=== PATIENT | male | born 1955 | race Caucasian/White ===

== ENCOUNTER 2017-04-02 16:36 | Emergency (ER) | payer BC ==
[2017-04-02 16:45] VITALS: BP 134/85
[2017-04-02] MEDS ORDERED: Lidocaine 1% MPF* 2 ML VIAL INJ ONE (17:33)
--- NOTE | 2017-04-02 18:22 | UC ---
Skin Complaint HPI - HPI Summary HPI Summary: Patient presents to with CC of left sided upper back tick bite. Tick was dislodged this afternoon, but patient feels the head may be stuck into the skin. 2 attempts by 2 different people to dislodge the tick failed. He comes in today to have the tick head removed. On exam there is a small black dot in the center of a raised erythematous area with swelling. No EM rash. Patient has had several ticks in the past, but denies Lyme disease. He has taken doxycycline in the past. Denies muscle aches, joint pains or FERRARI. - History of Current Complaint Chief Complaint: UCBiteInjury Time Seen by Provider: 04/02/17 17:25 Stated Complaint: TICK Hx Obtained From: Patient Onset/Duration: Sudden Onset Skin Exposure Onset/Duration: Hours Ago Timing: Constant Onset Severity: Mild Current Severity: Mild Pain Intensity: 0 Pain Scale Used: 0-10 Numeric Location: Discrete - left upper back Character: Swelling, Redness, Raised, Painful Aggravating: Nothing Alleviating: Nothing Related History: Insect Bite/Sting, Possible Reaction to: Insect - Allergy/Home Medications Allergies/Adverse Reactions: Allergies Allergy/AdvReac Type Severity Reaction Status Date / Time No Known Allergies Allergy Verified 04/02/17 16:45 Home Medications: Home Medications NK [No Home Medications Reported] 04/02/17 [History Confirmed 04/02/17] Review of Systems Constitutional: Negative Skin: Other - tick bite Respiratory: Negative Cardiovascular: Negative Motor: Negative Neurovascular: Negative Neurological: Negative Psychological: Negative All Other Systems Reviewed And Are Negative: Yes PMH/Surg Hx/FS Hx/Imm Hx Previously Healthy: Yes - Surgical History Surgical History: None - Family History Known Family History: Positive: Unknown - Social History Occupation: Employed Full-time Lives: With Family Alcohol Use: Weekly Substance Use Type: None Smoking Status (MU): Never Smoked Tobacco Have You Smoked in the Last Year: No Physical Exam Triage Information Reviewed: Yes Appearance: Well-Appearing, No Pain Distress, Well-Nourished Vital Signs: Initial Vital Signs Temp 99.1 F 04/02/17 16:40 Pulse 71 04/02/17 16:40 Resp 14 04/02/17 16:40 BP 134/85 04/02/17 16:40 Pulse Ox 99 04/02/17 16:40 Vital Signs Reviewed: Yes Eye Exam: Normal Eyes: Positive: Conjunctiva Clear Neck exam: Normal Neck: Positive: Supple, Nontender, No Lymphadenopathy Respiratory Exam: Normal Respiratory: Positive: Chest non-tender, Lungs clear Cardiovascular Exam: Normal Cardiovascular: Positive: RRR Musculoskeletal Exam: Normal Musculoskeletal: Positive: Strength Intact Psychological Exam: Normal Psychological: Positive: Normal Response To Family Skin: Positive: Other - raised 1cm diameter erythematous lesion over left upper back without pruritis Course/Dx - Course Course Of Treatment: Patient presents with tick bite to the upper right side of back with small black FB in center. He notes that the head was left in upon trying to dislodge the tick. Tick was slightly engorged per patient. He states tick was attched for likely less than 24 hours. .5ml Lidocaine 1% used as anesthetic. Time out was obtained. 18 gauge needle used to dislodge small black piece in center. He denies wanting doxycycline prophylaxis. patient OK with discharge. - Differential Diagnoses - Skin Complaint Differential Diagnoses: Tick Born Illness, Other - lyme, insect, FB - Diagnoses Provider Diagnoses: Tick bite Discharge - Discharge Plan Condition: Stable Disposition: HOME Patient Education Materials: Tick Bite (ED) Referrals: Non Staff,Doctor [Primary Care Provider] - Additional Instructions: Approach to prophylaxis : According to the Infectious Diseases Society of [place] (IDSA) guidelines that recommend antibiotic prophylaxis only in patients who meet all of the following criteria: 1. Attached tick identified as an adult or nymphal I. scapularis tick (deer tick). 2. Tick is estimated to have been attached for 36 hours (by degree of engorgement or time of exposure). 3. Prophylaxis is begun within 72 hours of tick removal. Local rate of infection of ticks with B. burgdorferi is 20 percent if attached for over 48 hours (these rates of infection have been shown to occur in parts of [place], parts of the [facility], and parts of [place] and [place]). If you experience a tick and time of attachment is believed to be less than 36 hours, you may remove the tick with head intact and no need for prophylaxis. If over 36 hours, please come into UC. Prophylactic doxycycline is not recommended for ticks attached less than 36 hours.
== END 2017-04-02 17:55 | disposition home or self-care (01) ==
LOC: UCCORT 16:36
DX: S20.462A Insect bite (nonvenomous) of left back wall of thorax, initial encounter (principal); W57.XXXA Bitten or stung by nonvenomous insect and other nonvenomous arthropods, initial encounter; Y93.9 Activity, unspecified; Y92.9 Unspecified place or not applicable
CPT/HCPCS: 10120; 99211; G0463

== ENCOUNTER 2024-06-10 13:25 | Inpatient (IN) ==
[2024-06-10 15:51] LABS: ABS Monocytes 0.3 10^3/uL (0.0-1.1); ABS Neutrophils 3.6 10^3/uL (1.5-7.6); Eosinophil % 0.8 %; Hematocrit 43.6 % (38-53); Hemoglobin 15.1 g/dL (13.2-16.3); Lymphocyte % 20.6 %; Mean Corpuscular Hemoglobin 34.5 pg (27-33); Mean Corpuscular Hgb Conc 34.7 g/dL (31-36); Mean Corpuscular Volume 99.4 fL (80-97); Mean Platelet Volume 9.2 fL (7.5-11.2); Nucleated Red Blood Cells % 0.1 %/100WBC (0.0-0.8); Platelet Count 191 10^3/uL (150-450); Red Blood Count 4.39 10^6/uL (4.06-5.63); Red Cell Distribution Width 13.6 % (12-17)
[2024-06-10 15:56] LABS: Urine Appearance Clear; Urine Bilirubin Negative (Negative); Urine Blood Negative (Negative); Urine Color Light-Yellow; Urine Glucose Negative (Negative); Urine Ketones Trace (Negative); Urine Nitrite Negative (Negative); Urine Protein Negative (Negative); Urine Specific Gravity 1.012 (1.002-1.030); Urine Urobilinogen Negative (Negative); Urine pH 5.5 (5.0-8.0)
[2024-06-10 16:09] LABS: Urine Benzodiazepine Screen None Detected (None Detect); Urine Cannabinoids Screen None Detected (None Detect); Urine Opiates Screen None Detected (None Detect)
[2024-06-10 16:40] LABS: ALT 30 U/L (7-52); AST 34 U/L (13-39); Acetaminophen < 15 mcg/mL; Albumin 4.4 g/dL (3.2-5.2); Albumin/Globulin Ratio 2.6 (1-3); Alcohol, S < 13 mg/dL (<13); Alkaline Phosphatase 81 U/L (35-149); Anion Gap 8 mmol/L (2-16); Blood Urea Nitrogen 24 mg/dL (6-24); CO2 Carbon Dioxide 29 mmol/L (22-32); Calcium 9.5 mg/dL (8.6-10.3); Chloride 101 mmol/L (101-111); Creatinine, Serum 0.83 mg/dL (0.67-1.17); Globulin 1.7 g/dL (2-4); Glucose 134 mg/dL (70-100); Potassium 4.3 mmol/L (3.5-5.0); Salicylate < 2.50 mg/dL (<30); Sodium 138 mmol/L (135-145); Total Bilirubin 0.6 mg/dL (0.2-1.0); Total Protein 6.1 g/dL (6.4-8.9); eGFR CKD-EPI 96.5 (>60)
[2024-06-10 16:42] LABS: TSH Ultra Thyroid Stim Horm 2.77 mcIU/mL (0.34-5.60)
[2024-06-10] MEDS ORDERED: Al Hydrox/Mg Hydrox/Simet LIQ 30 ML UDC PO PRN (21:09)
[2024-06-11 08:54] LABS: HDL Cholesterol 88.1 mg/dL
[2024-06-11] MEDS ORDERED: Vitamin THERAPEUTIC TAB PO SCH (09:00)
[2024-06-11] MEDS: Vitamin THERAPEUTIC TAB PO SCH (15:36)
[2024-06-12] MEDS: TELMISARTAN 40 MG PO SCH (09:10)
[2024-06-15] MEDS ORDERED: Polyethylene Glycol 3350 17 GM PACKET PO PRN (10:33)
[2024-06-17 08:04] VITALS: BP 127/88
[2024-06-17] MEDS: Gadoteridol (CONTRAST) 279.3 MG/ML 10 ML IV ONE (18:13)
== END 2024-06-17 18:00 | disposition home or self-care (01) | DRG 880 ==
LOC: ED 13:25 → BSU 22:30
PROVIDERS: ADMIT Psychiatry & Neurology Psychiatry; ATTEND Student in an Organized Health Care Education/Training Program